=== PATIENT | female | born 1965 | race Two or more races ===

== ENCOUNTER 2018-08-08 18:58 | Emergency (ER) | payer OTHER ==
[~2018-08-08] VITALS: Ht 149.9 cm; Wt 59.0 kg
[2018-08-08] MEDS ORDERED: SYNTHROID50 MCG (19:13)
== END 2018-08-08 22:24 | disposition home or self-care (01) ==
LOC: ER 18:58
DX: J11.1 Influenza due to unidentified influenza virus with other respiratory manifestations (principal)